=== PATIENT | female | born 1975 | race Caucasian/White ===

== ENCOUNTER → 2017-10-18 | Outpatient (CLI) | payer BC ==
--- NOTE | 2017-10-18 11:54 | MR ---
EXAMINATION TYPE: MR tmj wo con DATE OF EXAM: 10/18/2017 COMPARISON: NONE HISTORY: Internal Derangement Without Reduction TECHNIQUE: Multiplanar, multisequence images of the cervical spine were acquired. FINDINGS: The patient is wearing metallic braces. This is causing tremendous geometric distortion in the region of the TMJs. This exam is essentially nondiagnostic. IMPRESSION: NONDIAGNOSTIC STUDY.
== END | disposition home or self-care (01) ==
LOC: RADMRIMAIN 09:59
PROVIDERS: ATTEND Family Medicine
DX: M26.629 Arthralgia of temporomandibular joint, unspecified side (principal)
CPT/HCPCS: 70336

== ENCOUNTER → 2022-01-25 | Outpatient (CLI) | payer BC ==
--- NOTE | 2022-01-25 20:30 | EEG ---
ELECTROENCEPHALOGRAM REPORT DATE OF SERVICE: 01/25/2022 PREAMBLE: This is a 46-year-old female who had a syncopal spell. Patient was in her usual state of health about a month ago and had a syncopal spell at work. A co-worker told her that she started to say she did not feel well, put her up to her head and passed out, falling backwards. He caught her before hitting her head and she started violently shaking. No previous history of seizures. Patient did have migraines for the past 3 days. Current medications are Flexeril p.r.n. EEG FINDINGS: This is a 21-channel digital EEG recorded with video component, utilizing 10/20 international system with referential and bipolar montages. The background consists of well developed, well regulated moderate voltage activity in 10 hertz alpha. Background is posterior-dominant and reactive to eye opening and closing. Some low-voltage fast frequency beta mixed with some theta activity is seen in the frontal region. Background is reactive to photic stimulation with some flash frequencies. Drowsiness was seen with appearance of bilaterally symmetric theta frequency rhythm. Stage 2 sleep was attained with presence of vertex waves and sleep spindles. During drowsiness and sleep, transient bitemporal sharp-appearing waves were seen which did not appear clearly epileptiform, and some of them were associated with arousal. No definitive focal or generalized epileptiform activity was seen. EKG channel showed no obvious arrhythmia. This is an essentially normal awake, drowsy and sleep EEG. No definitive epileptiform activity was seen. A normal EEG does not rule out seizure disorder. If your suspicion for seizures is high, suggest prolonged, sleep-deprived EEG. MMODL / IJN: [id number] /
== END ==
LOC: NEUROMAIN 07:45
PROVIDERS: ATTEND Family Medicine
DX: R55 Syncope and collapse (principal); Z88.5 Allergy status to narcotic agent
CPT/HCPCS: 95819

== ENCOUNTER → 2023-09-19 | Outpatient (CLI) | payer BC ==
--- NOTE | 2023-09-19 08:44 | US ---
EXAMINATION TYPE: US liver DATE OF EXAM: 09/19/2023 COMPARISON: NONE CLINICAL INDICATION: Female, 48 years old with history of D18.09 LIVER HEMANGIOMA; Liver hemangioma TECHNIQUE: Multiple sonographic images of the right upper quadrant are obtained. FINDINGS: EXAM MEASUREMENTS: Liver Length: 12.1 cm Gallbladder Wall: .2 cm CBD: .3 cm Right Kidney: 10 x 4.1 x 4.4 cm [employer]ILT [employer] NOTES: Pancreas: wnl Liver: wnl Gallbladder: No stones seen Evidence for sonographic Mcclellan's sign: no CBD: wnl Right Kidney: wnl IMPRESSION: None
== END | disposition home or self-care (01) ==
LOC: RADUSWWP 07:26
PROVIDERS: ATTEND Urology
DX: D18.09 Hemangioma of other sites (principal)
CPT/HCPCS: 76705